=== PATIENT | female | born 1975 ===

== ENCOUNTER → 2025-01-30 15:39 | Outpatient (REF) | payer BC, SELFPAY | LOC: RCS 15:39 | PROVIDERS: ATTENDING PHYSICIAN Internal Medicine Interventional Cardiology; FAMILY PHYSICIAN Family Medicine | DX: R00.1 Bradycardia, unspecified (principal); Z82.79 Family history of other congenital malformations, deformations and chromosomal abnormalities; E78.5 Hyperlipidemia, unspecified | CPT/HCPCS: 93306 ==